=== PATIENT | female | born 1950 | race Two or more races ===

== ENCOUNTER 2020-11-13 07:43 | Inpatient (IN) | payer OTHER ==
[~2020-11-13] VITALS: Ht 170.2 cm; Wt 72.6 kg
[~2020-11-13 07:43] MED LIST: LOSARTAN POTASS50 MG PO
[2020-11-13] MEDS ORDERED: FEROSUL325 MG (07:53)
== END 2020-11-15 19:06 | disposition home or self-care (01) | DRG 683 ==
LOC: ER 07:43 → MEDI 15:34 → MEDJ 15:34
PROVIDERS: ADMIT Internal Medicine; ATTEND Internal Medicine
PROC: 30233N1 Transfusion of Nonautologous Red Blood Cells into Peripheral Vein, Percutaneous Approach (ICD-10-PCS; principal; 2020-11-13)
PROC: BT42ZZZ Ultrasonography of Left Kidney (ICD-10-PCS; 2020-11-15)
DX: I12.9 Hypertensive chronic kidney disease with stage 1 through stage 4 chronic kidney disease, or unspecified chronic kidney disease (principal); N17.8 Other acute kidney failure; B34.9 Viral infection, unspecified; Z20.822 Contact with and (suspected) exposure to COVID-19; N18.9 Chronic kidney disease, unspecified; D63.1 Anemia in chronic kidney disease

== ENCOUNTER 2020-12-26 07:30 | Emergency (ER) | payer OTHER ==
[~2020-12-26] VITALS: Ht 170.2 cm; Wt 68.0 kg
[~2020-12-26 07:30] MED LIST changes: +FEROSUL325 MG
[2020-12-26] MEDS ORDERED: NORVASC10 MG (07:47)
[2020-12-26] MEDS ORDERED: NAPR500T14 (07:47)
[2020-12-26] MEDS ORDERED: HYDRODIURIL12.5 MG (07:47)
[2020-12-26] MEDS ORDERED: NORFLEX100MG PO (09:09)
[2020-12-26] MEDS ORDERED: NABUMETONE500 MG PO (09:09)
== END 2020-12-26 09:15 | disposition home or self-care (01) ==
LOC: ER 07:30
DX: M54.5 Low back pain (principal)

== ENCOUNTER 2021-01-03 16:59 | Emergency (ER) | payer OTHER ==
[~2021-01-03] VITALS: Ht 162.6 cm; Wt 60.3 kg
[~2021-01-03 16:59] MED LIST changes: +HYDRODIURIL12.5 MG; +NABUMETONE500 MG PO; +NAPR500T14; +NORFLEX100MG PO; +NORVASC10 MG
== END 2021-01-03 18:41 | disposition home or self-care (01) ==
LOC: ER 16:59
DX: M54.16 Radiculopathy, lumbar region (principal); M54.42 Lumbago with sciatica, left side

== ENCOUNTER 2021-01-11 18:31 | Inpatient (IN) | payer OTHER ==
[~2021-01-11] VITALS: Ht 170.2 cm; Wt 64.4 kg
== END 2021-01-15 22:13 | disposition home or self-care (01) | DRG 812 ==
LOC: ER 18:31 → MEDI 01-12 13:58
PROVIDERS: ADMIT Internal Medicine; ATTEND Internal Medicine
PROC: 30233N1 Transfusion of Nonautologous Red Blood Cells into Peripheral Vein, Percutaneous Approach (ICD-10-PCS; principal; 2021-01-12)
DX: D50.9 Iron deficiency anemia, unspecified (principal); I12.9 Hypertensive chronic kidney disease with stage 1 through stage 4 chronic kidney disease, or unspecified chronic kidney disease; N18.30 Chronic kidney disease, stage 3 unspecified

== ENCOUNTER 2021-02-05 05:41 | Inpatient (IN) | payer OTHER ==
[~2021-02-05] VITALS: Ht 165.1 cm; Wt 65.8 kg
--- NOTE | 2021-02-05 06:01 | NUR ---
PTE SE RECUIBE POR DOLOR EN EL COSTADO DERECHO Y DOLOR EN EL COSTADO KANIKA REFIERE PARAMEDICO Y PTE.
[2021-02-05] MEDS ORDERED: HYDROCHLOROTHIA25 MG (06:07)
--- NOTE | 2021-02-05 06:15 | NUR ---
PACIENTE ALERTA Y ORIENTADA X3. MIS. SY ORIENTA A PACIENTE SOBRE PROCEDIMIENTO A REALIZAR Y REFIRIO ENTENDER. REALIZA MUESTRAS DE LABORATORIO BAJO MEDIDAS ASEPTICAS Y CANALIZACION PATENTE Y INO DE EDEMA Y ERITEMA. SE MANTIENE BAJO OBSERVACION POR CAMBIOS SIGNIFICATIVOS.
--- NOTE | 2021-02-05 07:00 | NUR ---
SE RECIBE PACIENTE DE TURNO ANTERIOR, ALERTA Y ORIENTADO EN TIEMPO LUGAR Y PERSONA. CON CARTAGENA DE IDENTIFICACION PRESENTE. VENOPUNCION PATENTE, INO DE ERITEMA Y EDEMA, AL MOMENTO EN SALINE LOCK. PENDIENTE RESULTADOS DE LABORATORIOS. SE MANTIENE PACIENTE EN OBSERVACION POR CAMBIOS EN KRISHNAMURTHY CONDICION.
--- NOTE | 2021-02-05 08:12 | NUR ---
SE COLECTA MUESTRA DE LABORATORIO GERTRUDE ORDEN MEDICA. SE ENVIA LA MISMA AL LABORATORIO.
--- NOTE | 2021-02-05 09:36 | NUR ---
SE NOTIFICA A TERAPIA RESPIRATORIA SOBRE ABG DE PACIENTE, SE NOTIFICA A MRS. BLACKMON
--- NOTE | 2021-02-05 10:30 | NUR ---
SE LE COLOCA CATETER URINARIO A PTE AL MOMENTO EL EGRESO FUE DE 300.
== END 2021-02-08 10:27 | disposition home or self-care (01) | DRG 812 ==
LOC: ER 05:41 → SEC-K 09:30 → MEDJ 09:30
PROVIDERS: ADMIT Internal Medicine; ATTEND Internal Medicine
PROC: 30233N1 Transfusion of Nonautologous Red Blood Cells into Peripheral Vein, Percutaneous Approach (ICD-10-PCS; principal; 2021-02-05)
PROC: 4A033R1 Measurement of Arterial Saturation, Peripheral, Percutaneous Approach (ICD-10-PCS; 2021-02-05)
DX: D64.89 Other specified anemias (principal); C90.00 Multiple myeloma not having achieved remission; N17.9 Acute kidney failure, unspecified; N18.30 Chronic kidney disease, stage 3 unspecified; I10 Essential (primary) hypertension; E87.6 Hypokalemia; E83.52 Hypercalcemia; M54.89 Other dorsalgia

== ENCOUNTER 2021-08-27 14:14 | Inpatient (IN) | payer OTHER ==
[~2021-08-27] VITALS: Ht 167.6 cm; Wt 45.4 kg
[~2021-08-27 14:14] MED LIST changes: +HYDROCHLOROTHIA25 MG
[2021-08-27] MEDS ORDERED: ECOTRIN81 MG PO (14:23)
[2021-08-27] MEDS ORDERED: REVLIMID10 MG PO (14:23)
[2021-08-27] MEDS ORDERED: DOCUSATE SODIU100 MG PO (14:24)
== END 2021-08-28 04:50 | disposition expired | DRG 208 ==
LOC: ER 14:14 → ICU-2 19:55 → ICU 19:55 → ICU-2 08-28 03:03
PROVIDERS: ADMIT Internal Medicine; ATTEND Internal Medicine
PROC: 5A1935Z Respiratory Ventilation, Less than 24 Consecutive Hours (ICD-10-PCS; principal; 2021-08-27)
PROC: 0BH17EZ Insertion of Endotracheal Airway into Trachea, Via Natural or Artificial Opening (ICD-10-PCS; 2021-08-27)
DX: U07.1 COVID-19 (principal); J12.82 Pneumonia due to coronavirus disease 2019; E11.10 Type 2 diabetes mellitus with ketoacidosis without coma; R65.20 Severe sepsis without septic shock; J96.00 Acute respiratory failure, unspecified whether with hypoxia or hypercapnia; C90.00 Multiple myeloma not having achieved remission; N17.9 Acute kidney failure, unspecified; D63.0 Anemia in neoplastic disease; I12.9 Hypertensive chronic kidney disease with stage 1 through stage 4 chronic kidney disease, or unspecified chronic kidney disease; E11.22 Type 2 diabetes mellitus with diabetic chronic kidney disease; N18.30 Chronic kidney disease, stage 3 unspecified; E86.0 Dehydration; G30.9 Alzheimer's disease, unspecified; F02.80 Dementia in other diseases classified elsewhere, unspecified severity, without behavioral disturbance, psychotic disturbance, mood disturbance, and anxiety